=== PATIENT | female | born 1980 | race African-American/Black ===

== ENCOUNTER 2023-09-15 23:30 | Emergency (ER) | payer MEDICAID ==
[~2023-09-15] VITALS: Ht 170.2 cm; Wt 99.8 kg
[2023-09-15 23:53] VITALS: BP 157/98; RESP 20; TEMP 98.3; O2SAT 98
[2023-09-16 01:02] VITALS: PULSE 90; RESP 24; O2SAT 100
[2023-09-16] MEDS: ALBUTEROL SULFATE/IPRATROPIU 3 ML SOL IH ONE (01:02)
[2023-09-16] MEDS: predniSONE 20 MG TAB PO ONE (01:37)
[2023-09-16] MEDS ORDERED: PRED20TA5 PO (02:44)
[2023-09-16] MEDS ORDERED: ALBU0.0912 IH (02:44)
[2023-09-16 02:59] VITALS: BP 140/84; PULSE 84; RESP 24; TEMP 98.3; O2SAT 100
== END 2023-09-16 02:59 | disposition home or self-care (01) ==
LOC: MED 23:30
DX: R05.9 Cough, unspecified (principal); R06.2 Wheezing; T78.49XA Other allergy, initial encounter; I10 Essential (primary) hypertension; Z88.5 Allergy status to narcotic agent; Z79.899 Other long term (current) drug therapy; X58.XXXA Exposure to other specified factors, initial encounter
CPT/HCPCS: 71045; 94640; 99283; J7512; Q0163